=== PATIENT | male | born 1975 | race Two or more races ===

== ENCOUNTER 2017-08-12 17:07 | Emergency (ER) | payer OTHER ==
[~2017-08-12] VITALS: Ht 170.2 cm; Wt 76.2 kg
--- NOTE | 2017-08-12 17:20 | NUR ---
[employer] 58 AND [employer] FROM WORK FOR [employer] X1 DAY ADMIT TO USING [employer]. PT AGGRESSIVE BEHAVIOR TOWARDS STAFF AND THREATHENING EVERY ONE IN THE ROOM. AT BS.
[2017-08-12 17:40] LABS: BASOPHILS # (AUTO) 0.2 /CMM (0.0-0.2); BASOPHILS % (AUTO) 1.3 % (0.0-2.0); EOSINOPHILS # (AUTO) 0.1 /CMM (0.0-0.7); EOSINOPHILS % (AUTO) 0.5 % (0.0-6.0); HEMATOCRIT 52 % (39-51); HEMOGLOBIN 17.1 g/dL (13.5-17.5); LYMPHOCYTES # (AUTO) 1.9 /CMM (0.8-4.8); LYMPHOCYTES % (AUTO) 16.6 % (20.0-44.0); MEAN CORPUSCULAR HEMOGLOBIN 28 PG (26.0-33.0); MEAN CORPUSCULAR HGB CONC 33 g/dl (31.0-36.0); MEAN CORPUSCULAR VOLUME 84 fL (80-96); MONOCYTES # (AUTO) 0.7 /CMM (0.1-1.30); MONOCYTES % (AUTO) 6.2 % (2.0-12.0); NEUTROPHILS # (AUTO) 8.7 /CMM (1.8-8.9); NEUTROPHILS % (AUTO) 75.4 % (43.0-81.0); PLATELET COUNT (AUTO) 325 /CMM (150-450); RDW COEFFICIENT OF VARIATION 13.4 (11.5-15.0); RED BLOOD CELL COUNT(AUTO) 6.14 MIL/uL (4.5-6.0); WHITE BLOOD COUNT (AUTO) 11.6 K/uL (4.3-11.0)
--- NOTE | 2017-08-12 17:50 | NUR ---
URINE SAMPLE SENT TO LAB
[2017-08-12 17:53] LABS: CARBON DIOXIDE 25 mmol/L (21-32); CHLORIDE 109 mmol/L (98-107); CREATININE 0.9 mg/dL (0.6-1.3); GLUCOSE 99 mg/dL (74-106); POTASSIUM 4.2 mmol/L (3.5-5.1); SODIUM SERUM 143 mmol/L (136-145); UREA NITROGEN, BLOOD 15 mg/dL (7-18)
[2017-08-12 17:59] LABS: ALANINE AMINOTRANSFERASE 28 U/L (12-78); ALBUMIN 4.2 g/dL (3.4-5.0); ALCOHOL, BLOOD < 3 mg/dL (0-0); ALKALINE PHOSPHATASE 78 U/L (46-116); ASPARTATE AMINOTRANSFERASE 19 U/L (15-37); BILIRUBIN,DIRECT 0.1 mg/dL (0.0-0.2); BILIRUBIN,TOTAL 0.8 mg/dL (0.2-1.0); TOTAL PROTEIN, SERUM 7.9 g/dL (6.4-8.2)
[2017-08-12 18:06] LABS: APPEARANCE,URINE Clear (CLEAR); BILIRUBIN,URINE SMALL (NEGATIVE); BLOOD, URINE Large Ery/uL (NEGATIVE); COLOR,URINE Yellow (YELLOW); KETONES,URINE Trace (NEGATIVE); LEUKOCYTE ESTERASE ,URINE Negative (NEGATIVE); NITRITE, URINE Negative (NEGATIVE); PH,URINE 5.5 (5.0-8.0); PROTEIN,URINE 100 mg/dl (NEGATIVE); UGLUCOSE Negative (NEGATIVE)
[2017-08-12 18:27] LABS: BACTERIA,URINE Few /HPF (None Seen); SQUAMOUS EPITHELIAL CELL,UR Few /HPF (None Seen)
[2017-08-12 18:28] LABS: MUCUS,URINE Few /LPF (None Seen); URINE AMORPHOUS URATE Moderate /HPF (None Seen)
[2017-08-12 19:42] LABS: SALICYLATE < 2.8 mg/dL (2.8-20.0)
[2017-08-12 19:43] LABS: ACETAMINOPHEN < 2 ug/ml (10-30)
--- NOTE | 2017-08-12 22:00 | NUR ---
SITTER AT BEDSIDE
--- NOTE | 2017-08-12 22:00 | NUR ---
Patient is resting comfortably in bed with eyes closed. Easily aroused. VSS
--- NOTE | 2017-08-12 22:02 | NUR ---
PT WILL BE REEVALUATED BY NIGHT WORKER IN AM.
--- NOTE | 2017-08-13 01:44 | NUR ---
pt sleeping in [facility]. no signs of distress noted. pt vital signs within normal limits. will cont to monitor pt.
--- NOTE | 2017-08-13 02:10 | NUR ---
[employer] at bedside for eval. Pt no longer on 5150 hold.
--- NOTE | 2017-08-13 07:03 | NUR ---
pt ok to discharge. Patient discharged to home in stable condition. Written and verbal after care instructions given. Patient verbalizes understanding of instruction.Patient is awake and alert to self, day, and place. pt ambulatory with a steady gait
[2017-08-13 07:04] VITALS: BP 124/71
== END 2017-08-13 07:05 | disposition home or self-care (01) ==
LOC: ER 17:10
DX: F29 Unspecified psychosis not due to a substance or known physiological condition (principal); F15.10 Other stimulant abuse, uncomplicated
CPT/HCPCS: 36415; 80048; 80076; 80305; 80329; 81001; 82550; 85025; 96372; 99284; A4606; G0480 ×2; J3490; Z7610; 81000-TC